=== PATIENT | male | born 1995 | race American Indian/Alaskan Native ===

== ENCOUNTER 2018-04-01 14:37 | Emergency (ER) | payer OTHER ==
[2018-04-01 15:08] VITALS: BP 130/78
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
[2018-04-01] MEDS ORDERED: PERCOCET 5/325 PO ONE (16:09)
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
== END 2018-04-01 18:08 | disposition short-term general hospital (02) ==
LOC: ED 14:37
DX: S01.111A Laceration without foreign body of right eyelid and periocular area, initial encounter (principal); F17.200 Nicotine dependence, unspecified, uncomplicated; Y00.XXXA Assault by blunt object, initial encounter; Y93.89 Activity, other specified; Y92.89 Other specified places as the place of occurrence of the external cause; Y99.8 Other external cause status
CPT/HCPCS: 70450; 70486